=== PATIENT | female | born 1985 | race African-American/Black ===

== ENCOUNTER 2018-09-14 12:47 | Emergency (ER) | payer OTHER | END 2018-09-14 14:46 | disposition left against medical advice (07) | LOC: UCCORT 12:47 | DX: R68.89 Other general symptoms and signs (principal); Z53.21 Procedure and treatment not carried out due to patient leaving prior to being seen by health care provider ==

== ENCOUNTER 2018-09-19 15:28 | Emergency (ER) | payer OTHER ==
--- NOTE | 2018-09-19 17:54 | UC ---
UC General HPI - HPI Summary HPI Summary: Pt presents with c/o uri like symptoms and bilateral ear pain. Pt also c/o vaginal discharge, genital swelling and tenderness, has hx of HSV infection and is concerned that she is having an outbreak now or other vaginal infection. - History of Current Complaint Chief Complaint: UCGeneralIllness Stated Complaint: STUFFY SINUSES,PERSONAL Time Seen by Provider: 09/19/18 16:59 Hx Obtained From: Patient Hx Last Menstrual Period: Depo Provera-not getting injection this month; desires Onset/Duration: Sudden Onset, Lasting Days, Still Present Timing: Constant Onset Severity: Mild Current Severity: Mild Pain Intensity: 0 - Allergy/Home Medications Allergies/Adverse Reactions: Allergies Allergy/AdvReac Type Severity Reaction Status Date / Time No Known Allergies Allergy Verified 09/19/18 16:25 Home Medications: Home Medications ValACYclovir (*) [Valtrex 1 GM(*)] 1 gm PO DAILY PRN 09/19/18 [History Confirmed 09/19/18] PMH/Surg Hx/FS Hx/Imm Hx Previously Healthy: Yes - Surgical History Surgical History: Yes Surgery Procedure, Year, and Place: breast reduction 2005 - Family History Known Family History: Positive: Cardiac Disease - Social History Occupation: Employed Full-time Lives: With Family Alcohol Use: Occasionally Substance Use Type: None Smoking Status (MU): Light Every Day Tobacco Smoker Type: Cigarettes Amount Used/How Often: 2 cig daily Have You Smoked in the Last Year: Yes Review of Systems All Other Systems Reviewed And Are Negative: Yes Constitutional: Positive: Fatigue Skin: Positive: Negative Eyes: Positive: Negative ENT: Positive: Ear Ache, Sinus Congestion Respiratory: Positive: Cough Cardiovascular: Positive: Negative Gastrointestinal: Positive: Negative Genitourinary: Positive: Vaginal/Penile Burning, Vaginal/Penile Itching, Vaginal /Penile Discharge, Vaginal/Penile Tenderness, Ulceration/Lesion Motor: Positive: Negative Neurovascular: Positive: Negative Musculoskeletal: Positive: Negative Neurological: Positive: Negative Psychological: Positive: Negative Is Patient Immunocompromised?: No Physical Exam Triage Information Reviewed: Yes Appearance: Well-Appearing Vital Signs: Initial Vital Signs Temp 98.6 F 09/19/18 16:17 Pulse 91 09/19/18 16:17 Resp 17 09/19/18 16:17 BP 126/90 09/19/18 16:17 Pulse Ox 100 09/19/18 16:17 Vital Signs Reviewed: Yes Eye Exam: Normal ENT: Positive: Other - bilateral cerumen Dental Exam: Normal Neck exam: Normal Respiratory Exam: Normal Cardiovascular Exam: Normal Abdominal Exam: Normal Abdomen Description: Positive: Nontender Pelvic Exam: Positive: Speculum Exam Normal, Active Bleeding, Other - pubic heair shaved. small tender lump right side of mons. Musculoskeletal Exam: Normal Neurological Exam: Normal Psychological Exam: Normal Skin Exam: Normal Course/Dx - Differential Dx - Multi-Symptom Differential Diagnoses: Urinary Tract Infection - Diagnoses Provider Diagnosis: UTI (urinary tract infection), Impacted cerumen of both ears, Ingrown hair Discharge - Sign-Out/Discharge Documenting (check all that apply): Patient Departure All imaging exams completed and their final reports reviewed: No Studies - Discharge Plan Condition: Stable Disposition: HOME Prescriptions: Cephalexin CAP* [Keflex 500 CAP*] 500 mg PO Q8H #21 cap Patient Education Materials: Urinary Tract Infection in Women (ED), Cerumen Impaction (ED), Folliculitis (ED) Referrals: Lacey Hassan MD [Primary Care Provider] - As Soon As Possible - Billing Disposition and Condition Condition: STABLE Disposition: Home
[2018-09-19 18:41] VITALS: BP 120/79
== END 2018-09-19 18:41 | disposition home or self-care (01) ==
LOC: UCCORT 15:28
DX: N39.0 Urinary tract infection, site not specified (principal); H61.23 Impacted cerumen, bilateral; L73.1 Pseudofolliculitis barbae; F17.210 Nicotine dependence, cigarettes, uncomplicated
CPT/HCPCS: 81003; 84702; 87077; 87086; 87186; 87480; 87491; 87510; 87591; 87661; 99212; G0463